=== PATIENT | female | born 1980 | race American Indian/Alaskan Native ===

== ENCOUNTER 2018-03-31 07:39 | Emergency (ER) | payer SELFPAY ==
[2018-03-31 07:53] VITALS: BP 123/85
[2018-03-31 08:23] LABS: Bacteria,Urine 2+ /HPF (Negative); Bilirubin,Urine NEG (Negative); Blood,Urine SM (Negative); Color,Urine Yellow (Yellow); Mucus,Urine 3+ /HPF; Protein,Urine <15 mg/dL mg/dL (Negative); Urobilinogen,Urine < 2.0 mg/dL (<2.0)
[2018-03-31 08:25] LABS: HCG Qualitative,Urine Positive (Negative)
--- NOTE | 2018-03-31 09:15 | Emergency Department Report ---
ED Female HPI - General Chief complaint: Abdominal Pain Stated complaint: (R) SIDE PAIN/VOMITING Time Seen by Provider: 03/31/18 09:00 Source: patient Mode of arrival: Ambulatory Limitations: No Limitations - History of Present Illness Initial comments: Patient is a 38-year-old female who presents to ED complaining of right sided flank pain that started yesterday. She states she has had some minimal nausea but otherwise no symptoms. Patient states she was not in any trauma, falls or heavy lifting She denies abdominal pain, fever, diarrhea, vaginal bleeding, vaginal discharge, dysuria or any other symptoms. - Related Data Previous Rx's Medication Instructions Recorded Last Taken Type Nitrofurantoin [place]/M-Cryst 100 mg PO Q12HR #10 capsule 03/31/18 Unknown Rx [Macrobid CAP] Pnv No.95/Ferrous Fum/Folic AC 1 each PO DAILY #40 tablet 03/31/18 Unknown Rx [ Vitamin Tablet] Allergies Allergy/AdvReac Type Severity Reaction Status Date / Time hydrocodone Allergy Itching Verified 03/31/18 07:51 ED Review of Systems ROS: Stated complaint: (R) SIDE PAIN/VOMITING Other details as noted in HPI Comment: All other systems reviewed and negative ED Past Medical Hx - Past Medical History Previous Medical History?: No - Surgical History Past Surgical History?: Yes Additional Surgical History: x 3 - Social History Smoking Status: Never Smoker Substance Use Type: None - Medications Home Medications: Home Medications Medication Instructions Recorded Confirmed Last Taken Type Nitrofurantoin [place]/M-Cryst 100 mg PO Q12HR #10 capsule 03/31/18 Unknown Rx [Macrobid CAP] Pnv No.95/Ferrous Fum/Folic AC 1 each PO DAILY #40 tablet 03/31/18 Unknown Rx [ Vitamin Tablet] ED Physical Exam - General Limitations: No Limitations General appearance: alert, in no apparent distress - Head Head exam: Present: atraumatic, normocephalic - Eye Eye exam: Present: normal appearance - ENT ENT exam: Present: mucous membranes moist - Neck Neck exam: Present: normal inspection - Respiratory Respiratory exam: Present: normal lung sounds bilaterally. Absent: respiratory distress - Cardiovascular Cardiovascular Exam: Present: regular rate, normal rhythm. Absent: systolic murmur, diastolic murmur, rubs, gallop - GI/Abdominal GI/Abdominal exam: Present: soft, normal bowel sounds. Absent: distended, tenderness, guarding, rebound - Extremities Exam Extremities exam: Present: normal inspection - Back Exam Back exam: Present: normal inspection, full ROM, CVA tenderness (R). Absent: tenderness, CVA tenderness (L), muscle spasm - Neurological Exam Neurological exam: Present: alert, oriented X3 - Psychiatric Psychiatric exam: Present: normal affect, normal mood - Skin Skin exam: Present: warm, dry, intact, normal color. Absent: rash ED Course Vital Signs 03/31/18 07:51 Temperature 98.7 F Pulse Rate 90 Respiratory 18 Rate Blood Pressure 123/85 O2 Sat by Pulse 100 Oximetry ED Medical Decision Making - Medical Decision Making 38-year-old female presents to ED with the right-sided flank pain Urinalysis positive for bacteria which is indicating of urinary tract infection. test was positive. Beta quantitative drawn, results pending. I discussed this findings with the patient. Patient is in a little surprised that she was . I discussed with her that she'll need to follow up with [facility] this patient states that she has one from the previous care. I discussed the patient that she will be going home on antibiotics to treat the UTI. Patient was in no acute distress she understands instructions and will follow- up. Critical care attestation.: If time is entered above; I have spent that time in minutes in the direct care of this critically ill patient, excluding procedure time. ED Disposition Clinical Impression: UTI (urinary tract infection), test positive for incidental Disposition: DC-01 TO HOME OR SELFCARE Is pt being admited?: No Does the pt Need Aspirin: No Condition: Stable Instructions: Abdominal Pain (ED), (ED), Urinary Tract Infection in Women (ED) Additional Instructions: Make sure to follow up with the primary care physician as discussed. Follow-up with the [facility] as discussed Take your medications as you've been prescribed. If you have any worsening symptoms or develop new symptoms please return to ED immediately. Prescriptions: Nitrofurantoin [place]/M-Cryst [Macrobid CAP] 100 mg PO Q12HR #10 capsule Pnv No.95/Ferrous Fum/Folic AC [ Vitamin Tablet] 1 each PO DAILY #40 tablet Referrals: PRIMARY MD MIK [Primary Care Provider] - 3-5 Days MELQUIADES COLLINS MD [Referring] - 3-5 Days Forms: Work/School Release Form(ED) Time of Disposition: 09:18
== END 2018-03-31 09:37 | disposition home or self-care (01) ==
LOC: ED 07:39
DX: N39.0 Urinary tract infection, site not specified (principal); Z33.1 Pregnant state, incidental; Z88.5 Allergy status to narcotic agent
CPT/HCPCS: 36415; 81001; 81025; 84702; 99283

== ENCOUNTER 2018-05-16 20:23 | Emergency (ER) | payer MEDICAID, OTHER ==
[2018-05-16] MEDS ORDERED: TYLENOL PO ONE (21:01)
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
[2018-05-16] MEDS ORDERED: TYLENOL ONE (21:04)
[2018-05-17 01:50] VITALS: BP 125/84
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
== END 2018-05-17 02:59 | disposition home or self-care (01) ==
LOC: ED 20:23
DX: M62.830 Muscle spasm of back (principal); V89.2XXA Person injured in unspecified motor-vehicle accident, traffic, initial encounter; Y93.89 Activity, other specified; Y92.410 Unspecified street and highway as the place of occurrence of the external cause; Y99.8 Other external cause status
CPT/HCPCS: 99282

== ENCOUNTER 2018-11-02 00:21 | Outpatient (CLI) | payer MEDICAID ==
[2018-11-02 00:48] VITALS: BP 128/78
[2018-11-02] MEDS ORDERED: LACTATED RINGERS 1,000 ML ONE (01:05)
[2018-11-02] MEDS ORDERED: LACTATED RINGERS 1,000 ML IV ONE (01:27)
[2018-11-02 02:11] LABS: Bilirubin,Urine NEG (Negative); Blood,Urine NEG (Negative); Color,Urine Yellow (Yellow); Mucus,Urine FEW /HPF; Protein,Urine <15 mg/dL mg/dL (Negative); Urobilinogen,Urine < 2.0 mg/dL (<2.0)
[2018-11-02 02:28] LABS: Amphetamine Screen,Urine PRESUMPTIVE NEGATIVE; Benzodiazepines Screen,Urine PRESUMPTIVE NEGATIVE; Cannabinoid Screen,Urine PRESUMPTIVE NEGATIVE; Cocaine Screen,Urine PRESUMPTIVE NEGATIVE; Methadone Screen,Urine PRESUMPTIVE NEGATIVE; Opiate Screen,Urine PRESUMPTIVE NEGATIVE
== END 2018-11-02 02:35 | disposition home or self-care (01) ==
LOC: TRG 00:21
PROVIDERS: ATTEND Obstetrics & Gynecology
DX: O62.9 Abnormality of forces of labor, unspecified (principal); O09.523 Supervision of elderly multigravida, third trimester; Z3A.36 36 weeks gestation of pregnancy; Z87.891 Personal history of nicotine dependence
CPT/HCPCS: 59025; 80307; 81001; 96360; J7120; 96365